=== PATIENT | female | born 1930 | race African-American/Black ===

== ENCOUNTER 2016-11-29 17:07 | Inpatient (IN) | payer OTHER, MEDICAID ==
[~2016-11-29] VITALS: Ht 167.6 cm; Wt 74.8 kg
[~2016-11-29 17:07] MED LIST: ASPI-1158 PO; ATOR10TA PO; DONE5TAB7 PO; GABA300C PO; INSLAN SQ; INSU100C3 SQ; LISI5TAB PO; OMEP10CA4 PO; PREG20SO PO; SERT25TA PO; TRAM50TA73 PO
[2016-11-29 18:38] LABS: BASOPHILS % 0.7 % (0.0-2.0); EOSINOPHILS % 3.2 % (0.0-5.0); HEMATOCRIT. 29.1 % (36.0-48.0); HEMOGLOBIN. 9.5 g/dL (12.0-16.0); LYMPHOCYTES % 44.2 % (20.0-50.0); MEAN CORPUSCULAR HEMOGLOBIN 27.9 pg (28.0-32.0); MEAN CORPUSCULAR VOLUME 84.9 fL (81.0-99.0); MEAN PLATELET VOLUME 9.8 fl (7.4-10.4); MONOCYTES % 7.3 % (2.0-8.0); NEUTROPHILS % 44.6 % (40.0-76.0); PLATELET 182 x1000/uL (130-400); RED BLOOD CELL COUNT 3.42 mill/uL (4.2-5.4); RED CELL DISTRIBUTION WIDTH 14.3 % (11.6-14.6)
[2016-11-29 18:41] LABS: CHLORIDE 103 mEq/L (98-107)
[2016-11-29 18:49] LABS: CARBON DIOXIDE 21 mEq/L (21-32); ETHANOL BLOOD < 10 mg/dL
[2016-11-29 19:14] LABS: CLARITY URINE CLEAR (CLEAR); COLOR URINE YELLOW (YELLOW); GLUCOSE URINE NEGATIVE (NEGATIVE); KETONES URINE NEGATIVE (NEGATIVE); LEUKOCYTE ESTERASE URINE NEGATIVE (NEGATIVE); NITRITE URINE NEGATIVE (NEGATIVE); OCCULT BLOOD URINE NEGATIVE (NEGATIVE); PROTEIN URINE NEGATIVE (NEGATIVE); SPECIFIC GRAVITY URINE 1.015 (1.005-1.030); UROBILINOGEN URINE 0.2 E.U./dL (0.2-1.0)
[2016-11-29 19:32] LABS: *AMPHETAMINES SCREEN URINE NEGATIVE (NEGATIVE); *BARBITURATES SCREEN URINE PRESUMTIVE POSITIVE (NEGATIVE); *BENZODIAZEPINES SCREEN URINE NEGATIVE (NEGATIVE); *COCAINE SCREEN URINE NEGATIVE (NEGATIVE); CANNABINOID URINE SCREEN NEGATIVE (NEGATIVE); METHADONE URINE SCREEN NEGATIVE (NEGATIVE); OPIATES URINE SCREEN NEGATIVE (NEGATIVE); PHENCYCLIDINE URINE SCREEN NEGATIVE (NEGATIVE)
[2016-11-30 01:00] VITALS: BP 155/41
[2016-11-30] MEDS ORDERED: ACETAMINOPHEN 325MG TABLET PO PRN ×2 (01:30→11:00)
[2016-11-30] MEDS ORDERED: DEXTROSE 50% WATER 50ML SYRINGE IV PRN ×2 (01:30→11:00)
[2016-11-30 04:00] VITALS: BP 139/52
[2016-11-30] MEDS: BLOOD SUGAR DIAGNOSTIC STRIP TEST SCH ×2 (06:55→12:34)
[2016-11-30] MEDS: INSULIN LISPRO 100 UNITS/ML SUBCUT SCH ×2 (07:38→12:55)
[2016-11-30 08:00] VITALS: BP 164/64
[2016-11-30] MEDS ORDERED: SODIUM CHLORIDE 0.45% 1,000 ML IV SCH (10:47)
[2016-11-30] MEDS ORDERED: TRAMADOL 50MG TABLET PO PRN (11:00)
[2016-11-30] MEDS ORDERED: IPRATROPIUM/ALBUTEROL 0.5-3(2.5)MG/3ML NEB INH PRN (11:00)
[2016-11-30] MEDS ORDERED: HYDROCODONE/ACETAMINOPHEN 5/325MG TABLET PO PRN (11:00)
[2016-11-30] MEDS ORDERED: ASPIRIN 81MG EC TABLET PO SCH (11:00)
[2016-11-30] MEDS ORDERED: ACETAMINOPHEN 650MG/20.3ML UDC GT PRN (11:00)
[2016-11-30] MEDS ORDERED: ACETAMINOPHEN 650MG SUPP PR PRN (11:00)
[2016-11-30] MEDS ORDERED: LISINOPRIL 5MG TABLET PO SCH (11:00)
[2016-11-30] MEDS ORDERED: MAGNESIUM/ALUMINUM HYDROXIDE/SIMETHICONE 30ML UDC PO PRN (11:00)
[2016-11-30] MEDS ORDERED: CLONIDINE 0.1MG TABLET PO PRN (11:00)
[2016-11-30] MEDS ORDERED: NA PHOS,M-B/NA PHOS,DI-BA ENEMA 118ML PR PRN (11:00)
[2016-11-30] MEDS ORDERED: ONDANSETRON HCL 4MG/2ML VIAL IV PRN (11:00)
[2016-11-30] MEDS ORDERED: SERTRALINE HCL 25MG TABLET PO SCH (11:00)
[2016-11-30 12:00] VITALS: BP 181/57
[2016-11-30] MEDS ORDERED: BLOOD SUGAR DIAGNOSTIC STRIP TEST SCH (12:20)
[2016-11-30] MEDS ORDERED: INSULIN LISPRO 100 UNITS/ML SUBCUT SCH (12:50)
[2016-11-30] MEDS ORDERED: SODIUM CHLORIDE 0.9% INJ 3ML FLUSH IVF SCH (14:00)
[2016-11-30 15:20] VITALS: BP 181/57
[2016-11-30 16:00] VITALS: BP 186/64
[2016-11-30 17:40] LABS: BASOPHILS % 0.4 % (0.0-2.0); EOSINOPHILS % 1.2 % (0.0-5.0); HEMATOCRIT. 32.1 % (36.0-48.0); HEMOGLOBIN. 10.6 g/dL (12.0-16.0); LYMPHOCYTES % 35.5 % (20.0-50.0); MEAN CORPUSCULAR HEMOGLOBIN 27.6 pg (28.0-32.0); MEAN CORPUSCULAR VOLUME 83.8 fL (81.0-99.0); MEAN PLATELET VOLUME 9.9 fl (7.4-10.4); MONOCYTES % 6.9 % (2.0-8.0); PLATELET 200 x1000/uL (130-400); RED BLOOD CELL COUNT 3.83 mill/uL (4.2-5.4); RED CELL DISTRIBUTION WIDTH 14.2 % (11.6-14.6)
[2016-11-30 17:50] LABS: CARBON DIOXIDE 24 mEq/L (21-32); CHLORIDE 104 mEq/L (98-107); CREATINE KINASE 172 IU/L (26-192)
[2016-11-30] MEDS ORDERED: DONEPEZIL HCL 5MG TABLET PO SCH (21:00)
[2016-11-30] MEDS ORDERED: GABAPENTIN 300MG CAPSULE PO SCH (21:00)
[2016-11-30] MEDS ORDERED: ATORVASTATIN CALCIUM 10MG TABLET PO SCH (21:00)
[2016-11-30] MEDS ORDERED: INSULIN DETEMIR UD 100 UNITS/ML SYR SUBCUT SCH (22:00)
== END 2016-11-30 17:00 | disposition short-term general hospital (02) | DRG 72 ==
LOC: ER 18:17 → 6EST 22:10 → ENRESERV 22:19
PROVIDERS: ADMIT Family Medicine; ATTEND Family Medicine
DX: G93.41 Metabolic encephalopathy (principal); E11.40 Type 2 diabetes mellitus with diabetic neuropathy, unspecified; F03.90 Unspecified dementia, unspecified severity, without behavioral disturbance, psychotic disturbance, mood disturbance, and anxiety; S80.01XA Contusion of right knee, initial encounter; W18.39XA Other fall on same level, initial encounter; E11.9 Type 2 diabetes mellitus without complications; I10 Essential (primary) hypertension; I25.10 Atherosclerotic heart disease of native coronary artery without angina pectoris; J45.909 Unspecified asthma, uncomplicated; F15.90 Other stimulant use, unspecified, uncomplicated; K30 Functional dyspepsia; K59.00 Constipation, unspecified; K21.9 Gastro-esophageal reflux disease without esophagitis; M79.7 Fibromyalgia; Z88.0 Allergy status to penicillin; Z79.4 Long term (current) use of insulin; Y99.8 Other external cause status; Z79.899 Other long term (current) drug therapy; I25.2 Old myocardial infarction; Y93.89 Activity, other specified; Y92.89 Other specified places as the place of occurrence of the external cause
CPT/HCPCS: 36415; 70450; 71010; 71250; 72125; 74176; 80053; 80305; 81003; 82550; 82652; 82962; 83036; 85025; 93005; 99285; G0482; J1815; A4315